=== PATIENT | male | born 1960 | race Caucasian/White ===

== ENCOUNTER 2020-12-02 08:29 | Day surgery (SDC) | payer BC ==
[~2020-12-02 08:29] MED LIST: Bupivacaine 0.5% 50 ML MDV ONE; Lidocaine 1% with EPINEPHrine 1:100,000 50 ML MDV ONE; Midazolam 1 MG/ML 2 ML SDV ONE; Propofol 200 MG/20 ML SDV ONE; fentaNYL 100 MCG/2 ML SDV ONE
[2020-12-02] MEDS ORDERED: Sodium Chloride 0.9% 1,000 ML IV SCH (09:00)
[2020-12-02] MEDS ORDERED: metroNIDAZOLE/Normal Saline 500 MG in Premix Bag 1 BAG IV ONE (09:30)
[2020-12-02] MEDS ORDERED: ceFAZolin 2 GM in Premix Bag 1 BAG IV ONE (09:30)
[2020-12-02] MEDS ORDERED: Ketorolac 30 MG/ML SDV ONE (09:48)
[2020-12-02] MEDS ORDERED: Propofol 200 MG/20 ML SDV ONE ×2 (09:51→10:21)
[2020-12-02] MEDS ORDERED: Acetaminophen/HYDROcodone 325-5 MG Tab PO PRN (11:03)
--- NOTE | 2020-12-02 15:28 | OR ---
DATE OF PROCEDURE: 12/02/2020 SURGEON: Des Salazar MD PROCEDURES: 1. Bilateral transversus abdominis plane blocks. 2. Bilateral rectus sheath blocks. COMPLICATIONS: None. CERTIFIED WELLNESS PROGRAM MANAGER: None. ANESTHESIA: MAC. PREOPERATIVE DIAGNOSIS: Requirement for TAP/rectus sheath block POSTOPERATIVE DIAGNOSIS: Requirement for TAP/rectus sheath block. PROCEDURE IN DETAIL: The patient was placed in supine position. The left transversus plane was identified first. 20% of the solution was injected under direct visualization. This was then repeated on the right side. Bilateral rectus sheaths were then injected under direct visualization. 20% of the solution was injected in each location respectively. At no point was the needle advanced past peritoneum nor blindly advanced. The patient tolerated the procedure well. Des Salazar MD /[id number]
--- NOTE | 2020-12-02 16:24 | OR ---
DATE OF PROCEDURE: 12/02/2020 SURGEON: Des Salazar MD PROCEDURE: Left inguinal hernia repair, incarcerated, not strangulated. COMPLICATION: None. ASSISTANT MEDIA BUYER: None. ANESTHESIA: MAC. RISKS: Risks, benefits, alternatives, and limitations including, but not limited to, infection, bleeding, injury to testicle resulting in testicular loss, chronic wounds, chronic pain, and other risks not listed here were explained to the patient and he wished to proceed. PROCEDURE IN DETAIL: The patient was placed in left lateral decubitus position. A curvilinear incision was made lateral to the pubic symphysis of approximately 5 cm in size. This was carried down with electrocautery to the external oblique aponeurosis which was opened with a 15 blade, subsequently with Metzenbaum scissors. The cord structures and hernia were identified. The hernia was noted to be incarcerated. This was able to be reduced. There was no evidence of strangulation. Cord structures were surrounded by a [place] drain. An extra-large plug and patch system was then inserted into the indirect inguinal hernia. This was sutured into place in multiple locations in combination with tacks. Overlay patch was also sutured and tacked into place. Careful attention was paid for ilioinguinal nerve, which was not interacted with in anyway other than observation and identification. The tails were then sutured together. The external oblique aponeurosis was closed with 3-0 Vicryl. Subcutaneous tissue was closed with 3-0 Vicryl. The skin was closed with 4-0 Vicryl. Dermabond was applied. The patient tolerated procedure well. Des Salazar MD /[id number]
== END 2020-12-02 12:10 | disposition home or self-care (01) ==
LOC: JP.SDS 08:29
PROVIDERS: ATTEND Surgery
DX: K40.30 Unilateral inguinal hernia, with obstruction, without gangrene, not specified as recurrent (principal); G35 Multiple sclerosis; Z79.899 Other long term (current) drug therapy
CPT/HCPCS: 49507; A9270; C1713; C1781; J0171; J0690; J1100; J1885; J2250; J2704; J2795; J3010; J3490; J7030